=== PATIENT | male | born 1950 | race Caucasian/White ===

== ENCOUNTER 2019-10-28 16:20 | Emergency (ER) | payer OTHER ==
[~2019-10-28] VITALS: Ht 165.1 cm; Wt 76.7 kg
[2019-10-29] MEDS ORDERED: AFRIN15 ML NASAL (09:22)
[2019-10-29] MEDS ORDERED: AYR SALINE NA14.1 GM NASAL (09:23)
== END 2019-10-28 18:15 | disposition home or self-care (01) ==
LOC: ER 16:20
DX: R04.0 Epistaxis (principal)

== ENCOUNTER 2019-10-29 07:10 | Outpatient (CLI) | payer OTHER ==
[~2019-10-29] VITALS: Ht 165.1 cm; Wt 79.4 kg
[2019-10-29] MEDS ORDERED: AFRIN15 ML NASAL (09:22)
[2019-10-29] MEDS ORDERED: AYR SALINE NA14.1 GM NASAL (09:23)
== END 2019-10-29 08:10 | disposition home or self-care (01) ==
LOC: OFIC 805 07:10
DX: J31.0 Chronic rhinitis (principal); R04.0 Epistaxis

== ENCOUNTER 2023-09-05 16:02 | Outpatient (CLI) | payer OTHER ==
[~2023-09-05 16:02] MED LIST: AFRIN15 ML NASAL; AYR SALINE NA14.1 GM NASAL
[2023-09-05 16:45] LABS: PH,URINE 6.5 (5.0-8.0); URINE APPEARANCE Cloudy; URINE BILIRRUBIN Negative (NEGATIVE); URINE BLOOD Large; URINE COLOR Dark Yellow; URINE GLUCOSE Negative (NEGATIVE); URINE LEUKOCYTE Moderate; URINE NITRATE Negative
[2023-09-05 16:49] LABS: URINE BACTERIA 148.6 uL (0.0-1933); URINE RBC 1940.7 uL (0.0-20.8); URINE WBC 909.4 uL (0.0-23.2)
[2023-09-05 16:56] LABS: URINE EPITHELIAL CELLS 0.7 uL (0.0-38.8); URINE PROTEIN 300 (NEGATIVE)
== END 2023-09-05 16:05 | disposition home or self-care (01) ==
LOC: LAB 16:02
PROVIDERS: ATTEND Urology
DX: N30.00 Acute cystitis without hematuria (principal); R97.20 Elevated prostate specific antigen [PSA]